=== PATIENT | female | born 1990 | race Caucasian/White ===

== ENCOUNTER 2016-08-11 17:03 | Outpatient (CLI) | payer OTHER ==
[~2016-08-11] VITALS: Ht 165.1 cm; Wt 77.7 kg
[2016-08-11 17:11] VITALS: BP 109/63
== END 2016-08-11 17:30 | disposition home or self-care (01) ==
LOC: LDOP 17:03
PROVIDERS: ATTEND Student in an Organized Health Care Education/Training Program
DX: O26.893 Other specified pregnancy related conditions, third trimester (principal); R00.0 Tachycardia, unspecified; Z3A.37 37 weeks gestation of pregnancy
CPT/HCPCS: 59025; 99211; G0463

== ENCOUNTER 2016-08-20 16:58 | Inpatient (IN) | payer OTHER ==
[~2016-08-20] VITALS: Ht 165.1 cm; Wt 78.6 kg
[2016-08-20] MEDS ORDERED: MISOPROSTOL 25 MCG TABLET ONE ×2 (17:19→22:47)
[2016-08-20] MEDS ORDERED: OXYTOCIN 30U/ 0.9% NaCL 500ML 500 ML IV PRN (17:29)
[2016-08-20 17:30] VITALS: BP 115/67
[2016-08-20] MEDS: LACTATED RINGERS 1,000 ML IV SCH (17:45)
[2016-08-20] MEDS: D5%-LACTATED RINGERS 1,000 ML IV SCH (17:46)
[2016-08-20] MEDS ORDERED: OXYTOCIN 30U/ 0.9% NaCL 500ML 500 ML IV ONE (17:46)
[2016-08-20] MEDS: OXYTOCIN 30U/ 0.9% NaCL 500ML 500 ML IV SCH (17:52)
[2016-08-20] MEDS ORDERED: ONDANSETRON 2MG/ML, 2ML IVPush PRN (18:00)
[2016-08-20] MEDS ORDERED: IBUPROFEN 600 MG TABLET PO PRN (18:00)
[2016-08-20] MEDS ORDERED: TERBUTALINE 1 MG/ML, 1ML SQ PRN (18:00)
[2016-08-20] MEDS ORDERED: SODIUM CITRATE/CITRIC ACID 30 ML UDC PO PRN (18:00)
[2016-08-20] MEDS ORDERED: HYDROcodone/APAP 5/325 TABLET PO PRN ×2 (18:00)
[2016-08-20] MEDS ORDERED: SODIUM CHLORIDE FLUSH 10ML SYR IVF PRN (18:00)
[2016-08-20] MEDS ORDERED: METOCLOPRAMIDE 5 MG/ML, 2ML IVPush PRN (18:00)
[2016-08-20] MEDS ORDERED: MISOPROSTOL 200 MCG TABLET PR PRN (18:00)
[2016-08-20] MEDS ORDERED: FENTANYL PF 100 MCG/2ML IV PRN (18:00)
[2016-08-20] MEDS ORDERED: PLEASE ENTER HEIGHT AND WEIGHT MC SCH ×2 (18:00→18:30)
[2016-08-20] MEDS ORDERED: TERBUTALINE 1 MG/ML, 1ML IVPush PRN (18:00)
[2016-08-20] MEDS ORDERED: METHYLERGONOVINE 0.2 MG/ML IM PRN (18:00)
[2016-08-20] MEDS ORDERED: CARBOPROST TROMETHAMINE 250 MCG/ML, 1ML IM PRN (18:00)
[2016-08-20] MEDS: MISOPROSTOL 25 MCG TABLET VG PRN ×2 (18:05→22:30)
[2016-08-20] MEDS ORDERED: PREN1TAB27 PO (19:06)
[2016-08-20 19:30] VITALS: BP 120/71
[2016-08-21] MEDS: D5%-LACTATED RINGERS 1,000 ML IV SCH ×2 (01:46→09:46)
[2016-08-21] MEDS ORDERED: MISOPROSTOL 25 MCG TABLET ONE (03:02)
[2016-08-21] MEDS: LACTATED RINGERS 1,000 ML IV SCH ×3 (03:07→16:36)
[2016-08-21] MEDS: MISOPROSTOL 25 MCG TABLET VG PRN (03:12)
[2016-08-21] MEDS: OXYTOCIN 30U/ 0.9% NaCL 500ML 500 ML IV SCH ×3 (03:52→23:52)
[2016-08-21 08:16] VITALS: BP 121/72
[2016-08-21] MEDS ORDERED: FENTANYL PF 100 MCG/2ML ONE (09:06)
[2016-08-21] MEDS ORDERED: LIDOCAINE/PF 1.5%-EPI 1:200K, 30ML ONE ×2 (10:00→10:05)
[2016-08-21] MEDS ORDERED: FENTANYL/BUPIV./NS/PF 250 ML EPIDCONT ONE ×2 (10:00→10:05)
[2016-08-21] MEDS ORDERED: BUPIVACAINE/PF 0.25% ONE (10:01)
[2016-08-21] MEDS ORDERED: LIDOCAINE 1%, 20ML ONE (10:05)
[2016-08-21] MEDS ORDERED: BUPIVACAINE 0.25% ONE (10:05)
[2016-08-21] MEDS ORDERED: FENTANYL/BUPIV./NS/PF 250 ML EPIDCONT SCH (13:00)
[2016-08-21] MEDS ORDERED: LACTATED RINGERS 1,000 ML IVBOLUS PRN (13:00)
[2016-08-21] MEDS ORDERED: LACTATED RINGERS 1,000 ML IV SCH (13:00)
[2016-08-21] MEDS ORDERED: NEWBORN KIT ONE (13:51)
[2016-08-21] MEDS ORDERED: OXYTOCIN 30U/ 0.9% NaCL 500ML 500 ML ONE ×2 (14:26→16:21)
[2016-08-21] MEDS ORDERED: OXYcodone/APAP 5/325MG TABLET ONE (16:21)
[2016-08-21] MEDS ORDERED: OXYTOCIN 30U/ 0.9% NaCL 500ML 500 ML IV SCH (16:27)
[2016-08-21] MEDS ORDERED: CARBOPROST TROMETHAMINE 250 MCG/ML, 1ML IM PRN (16:30)
[2016-08-21] MEDS ORDERED: METHYLERGONOVINE 0.2 MG/ML IM PRN (16:30)
[2016-08-21] MEDS ORDERED: HYDROcodone/APAP 5/325 TABLET PO PRN (16:30)
[2016-08-21] MEDS ORDERED: ONDANSETRON 2MG/ML, 2ML IV PRN (16:30)
[2016-08-21] MEDS ORDERED: MISOPROSTOL 200 MCG TABLET PR PRN (16:30)
[2016-08-21] MEDS ORDERED: CALCIUM CARBONATE 500 MG TAB.CHEW PO PRN (16:30)
[2016-08-21] MEDS ORDERED: OXYcodone/APAP 5/325MG TABLET PO ONE (17:00)
[2016-08-21 19:20] VITALS: BP 124/71
[2016-08-21] MEDS: DOCUSATE 100 MG CAPSULE PO PRN (22:09)
[2016-08-21] MEDS: IBUPROFEN 600 MG TABLET PO PRN (22:09)
[2016-08-21] MEDS: HYDROcodone/APAP 5/325 TABLET PO PRN (22:11)
[2016-08-21 23:42] VITALS: BP 109/68
[2016-08-22 03:50] VITALS: BP 114/73
[2016-08-22] MEDS: HYDROcodone/APAP 5/325 TABLET PO PRN ×3 (05:00→18:29)
[2016-08-22] MEDS: IBUPROFEN 600 MG TABLET PO PRN ×3 (05:00→18:29)
[2016-08-22 08:09] VITALS: BP 102/68
[2016-08-22] MEDS: PRENATAL VIT/IRON/FA 1 EACH TABLET PO SCH (09:00)
[2016-08-22] MEDS: DOCUSATE 100 MG CAPSULE PO PRN ×2 (09:00→11:51)
[2016-08-22] MEDS: OXYTOCIN 30U/ 0.9% NaCL 500ML 500 ML IV SCH (09:52)
[2016-08-22 11:33] VITALS: BP 108/69
[2016-08-22] MEDS ORDERED: RHOGAM FROM BLOOD BANK 1 NOTE EA IM/IV ONE (14:15)
[2016-08-22 15:44] VITALS: BP 118/72
[2016-08-22] MEDS ORDERED: MEASLES,MUMPS&RUBELLA VACC/PF 0.5 ML SQ-VACC ONE (18:25)
[2016-08-22 19:12] VITALS: BP 116/78
[2016-08-23] MEDS: HYDROcodone/APAP 5/325 TABLET PO PRN ×3 (00:54→14:33)
[2016-08-23] MEDS: IBUPROFEN 600 MG TABLET PO PRN ×3 (00:54→14:33)
[2016-08-23 07:06] VITALS: BP 117/72
[2016-08-23] MEDS: DOCUSATE 100 MG CAPSULE PO PRN (08:24)
[2016-08-23] MEDS: PRENATAL VIT/IRON/FA 1 EACH TABLET PO SCH (08:24)
[2016-08-23] MEDS ORDERED: IBUP-1222 PO (10:16)
[2016-08-23] MEDS ORDERED: HYDR-3240 PO (10:17)
[2016-08-23] MEDS ORDERED: DOCU-30 PO (10:18)
== END 2016-08-23 17:20 | disposition home or self-care (01) | DRG 775 ==
LOC: LDIP 16:58 → 2NW 08-21 19:08
PROVIDERS: ADMIT Student in an Organized Health Care Education/Training Program; ATTEND Student in an Organized Health Care Education/Training Program
PROC: 10D07Z6 Extraction of Products of Conception, Vacuum, Via Natural or Artificial Opening (ICD-10-PCS; principal; 2016-08-21)
PROC: 0KQM0ZZ Repair Perineum Muscle, Open Approach (ICD-10-PCS; 2016-08-21)
PROC: 10907ZC Drainage of Amniotic Fluid, Therapeutic from Products of Conception, Via Natural or Artificial Opening (ICD-10-PCS; 2016-08-21)
PROC: 3E0P7GC Introduction of Other Therapeutic Substance into Female Reproductive, Via Natural or Artificial Opening (ICD-10-PCS; 2016-08-21)
PROC: 3E0R3CZ (ICD-10-PCS; 2016-08-21)
PROC: 00HU33Z Insertion of Infusion Device into Spinal Canal, Percutaneous Approach (ICD-10-PCS; 2016-08-21)
PROC: 3E0334Z Introduction of Serum, Toxoid and Vaccine into Peripheral Vein, Percutaneous Approach (ICD-10-PCS; 2016-08-22)
DX: O36.5930 Maternal care for other known or suspected poor fetal growth, third trimester, not applicable or unspecified (principal); O99.12 Other diseases of the blood and blood-forming organs and certain disorders involving the immune mechanism complicating childbirth; D69.59 Other secondary thrombocytopenia; O76 Abnormality in fetal heart rate and rhythm complicating labor and delivery; O26.893 Other specified pregnancy related conditions, third trimester; O70.1 Second degree perineal laceration during delivery; Z37.0 Single live birth; Z3A.38 38 weeks gestation of pregnancy; Z67.41 Type O blood, Rh negative; Z88.2 Allergy status to sulfonamides; Z23 Encounter for immunization
CPT/HCPCS: 36415; 81003; 82803; 85025; 85461; 86850; 86900; 88307; J2790; J3010; J3490; J2590; J7120